=== PATIENT | female | born 1985 | race Caucasian/White ===

== ENCOUNTER 2024-07-05 18:42 | Emergency (ER) | payer BC, SELFPAY ==
[2024-07-05 19:03] VITALS: BP 123/70
--- NOTE | 2024-07-05 21:06 | ED.GENMED ---
History of Present Illness
General
Chief Complaint: DVT/Possible Blood Clot
Source: patient
Exam Limitations: none
Time Seen by Provider: 07/05/24 21:04
Nursing documentation reviewed up to this point in time: agreed with
History of Present Illness
History of Present Illness:
This is a 39 y/o female with a hx of anxiety, depression presents to the emergency department today with concerns of paresthesias in her left lower extremity. Patient states that she does have a history of chronic back pain and sciatica and reports
that this sensation does feel similar to that. Patient states that however has been more intense the past few days. It is intermittent. Patient does not feel a sensation currently. She has no pain in her leg. She denies any swelling or erythema
to the area. Patient is concerned because she had an abdominoplasty and breast augmentation surgery done 3 weeks ago with concern about possible DVT. Patient denies any chest pain or shortness of breath. Patient is never had a blood clot before.
She is on no anticoagulation. Patient denies any falls or trauma to the area. Patient denies any weakness with walking, patient denies any recent vaccinations. Patient denies any fevers or chills, saddle paresthesias, urinary or fecal
incontinence.
Past History
Past History
ED Past Medical History: Asthma (Sports induced) and Psychiatric (Anxiety, Depression)
ED Past Surgical History: Orthopedic (Tendon repair left ankle, Left knee surgery, ), Tonsilectomy and Other (Lipo Suction)
Social History
Tobacco: Former smoker
Alcohol: Occasional
Personal:
Living: with family
Review of Systems
Review of Systems
All Other Systems: ROS reviewed and negative except as documented in HPI and ROS
Phy Exam
Physical Exam
Physical Exam:
General: Patient is well appearing and in no acute distress; non-toxic
Skin: Warm and dry, no rashes or lesions
Head: Normocephalic, atraumatic
Eyes: Sclera non-icteric. EOMs intact. PERRLA.
Cardiac: Regular rate and rhythm, no murmurs
Peripheral Vascular: No lower extremity swelling or edema, calf size equal bilaterally, 2+ patellar pedis and posterior tibial pulses
Pulm: Normal respiratory effort, wheezes, rales, rhonchi
Musculoskeletal: No midline spinal tenderness over the lumbar spine, no tenderness palpation of the para spinal muscles, negative straight leg raise
Neuro: CN II-XII intact, no focal neurologic deficits. 5 out of 5 strength in bilateral upper and lower extremities. Sensation intact, good to point discrimination.
Psychiatric: Appropriate mood and affect.
Course
Orders/Labs/Results
Orders:
Orders
07/05/24 19:08
US Periph Venous LOWER Ext LT Urgent
Comment:
Reason For Exam: r/o dvt
Vital Signs
Initial and Last Documented VS:
Initial Vital Signs
Temp Pulse Resp BP Pulse Ox
98.8 F 77 18 123/70 99
07/05/24 19:03 07/05/24 19:03 07/05/24 19:03 07/05/24 19:03 07/05/24 19:03
Last Documented Vital Signs
Temp Pulse Resp BP Pulse Ox
98.8 F 77 20 123/70 99
07/05/24 19:03 07/05/24 19:03 07/05/24 21:47 07/05/24 19:03 07/05/24 19:03
MDM/Problems Addressed
Differential Diagnosis Includes:
Differentials include DVT, musculoskeletal sprain/strain, herniated disc, spinal stenosis, sciatica, electrolyte derangement
MDM/Problems Addressed:
39-year-old female presents emergency department today with left leg paresthesias. Patient describes her paresthesias on the posterior left thigh radiating across onto the left anterior lower extremity. This is congruent with the L5 distribution.
Patient states that she does have sciatica history. Patient states that she has never had formal workup for this and states that she gets treatment with a chiropractor and the symptoms resolved. Patient states that she has not seen her
chiropractor because of this recent surgery and she has been resting. Patient concerned she has a blood clot. On physical exam, she has no swelling in the calf, no tenderness palpation. No erythema. Patient had ultrasound study done today which
showed no DVT. I suspect patient symptoms related to sciatica. Discussed further workup for this, discussed basic labs screen for electrolyte derangements, discussed further pain control for her chronic low back pain, patient states that she would
rather follow-up as outpatient and just wanted to get the ultrasound today. I think this is reasonable, patient states that she stays well-hydrated. Discussed Ortho follow-up should she have persistent symptoms. Patient's is stable for discharge.
Chronic conditions affecting care:
n/a
Acute Exacerbation and/or Progression of Chronic Illness:
n/a
*Pulse Oximetry
Patient hypoxic: no
*Critical Care Note
Total Time (30-74mins, 75-104mins- exclusive of procedures): Not Applicable
Data Reviewed
Review of Other/Old Records Reveals: Records (Reviewed ER physician documentation from 06/07/2023, patient was seen for headache) and Discharge Summary (No discharge summary [facility] to review)
Source: patient and records
Prescriptions/Medications Considered But Not Given:
n/a
Further Testing Considered But Not Given:
n/a
Patient Management
Escalation/DeEscalation of care consider admission/obs:
case reviewed with my attending Dr. Gallo
ED Attending Note
-
Portions of this chart may have been created with voice recognition software.� Occasional wrong word or��sound alike� substitutions may have occurred due to the inherent limitations of voice recognition software.
Discharge Plan
Departure
Patient Disposition: Home (Routine Discharge)
Date of Disposition: 07/05/24
Time of Disposition: 21:21
Patient with high blood pressure during this ER visit?: Yes
Condition: Good
Discharge Problem:
Left leg paresthesias
Instructions: Paresthesia (DC)
Activity Restrictions/Additional Instructions:
Your ultrasound study was negative for blood clot.
Your numbness and tingling follows the L5 nerve root distribution, highly suspicious for sciatica. I recommend following up with your primary care provider for this issue, you may need an MRI for further evaluation.
Please return to the emergency department should you develop urinary incontinence, fecal incontinence, fevers or chills, neck pain, persistent headaches, inability to ambulate, numbness or tingling in the genital region, or any other signs or
symptoms concerning to you
Interventions
Interventions:
*Risk Screen - Suicide Last Done: 07/05/24 19:03
*General Assessment Last Done: 07/05/24 19:03
*Neglect/Abuse Screening Last Done: 07/05/24 19:03
ED- Fall Risk Assessment Last Done: 07/05/24 21:49
*ED COVID-19 Vaccine History Last Done: 07/05/24 21:49
*Nursing Disposition Last Done: 07/05/24 21:49
ED- Cardiac Assessment Last Done: 07/05/24 21:47
ED- Pulmonary Assessment Last Done: 07/05/24 21:47
ED-Peripheral Vascular Assessment Last Done: 07/05/24 21:47
ED-Skin Assessment Last Done: 07/05/24 21:47
Discharge Date and Time
Discharge Date/Time: 07/05/24 21:50
Print Language: AFGHAN
== END 2024-07-05 21:50 | disposition home or self-care (01) ==
LOC: EMR 18:42
PROVIDERS: EMERGENCY PHYSICIAN Emergency Medicine
DX: R20.2 Paresthesia of skin (principal); R03.0 Elevated blood-pressure reading, without diagnosis of hypertension; M79.605 Pain in left leg; F41.9 Anxiety disorder, unspecified; F32.A Depression, unspecified; M54.9 Dorsalgia, unspecified; G89.29 Other chronic pain; M54.30 Sciatica, unspecified side; J45.909 Unspecified asthma, uncomplicated; Z98.890 Other specified postprocedural states; Z87.891 Personal history of nicotine dependence; Z88.2 Allergy status to sulfonamides
CPT/HCPCS: 99284; 93971